=== PATIENT | female | born 1960 ===

== ENCOUNTER → 2018-10-23 | Outpatient (CLI) | payer OTHER | END | disposition home or self-care (01) | LOC: RAD 10:44 | DX: J01.80 Other acute sinusitis (principal); J20.8 Acute bronchitis due to other specified organisms ==

== ENCOUNTER 2019-03-06 08:45 | Outpatient (CLI) | payer OTHER | END 2019-03-06 08:47 | disposition home or self-care (01) | LOC: TOM 08:45 | DX: R10.31 Right lower quadrant pain (principal); R10.33 Periumbilical pain; R10.32 Left lower quadrant pain ==

== ENCOUNTER → 2021-01-03 14:41 | Outpatient (CLI) | payer OTHER | END | disposition home or self-care (01) | LOC: PPH VACUNA 14:41 | DX: Z23 Encounter for immunization (principal) ==

== ENCOUNTER 2021-08-01 07:30 | Outpatient (CLI) | payer OTHER | END 2021-08-01 07:31 | disposition home or self-care (01) | LOC: NUCLEAR 07:30 | PROVIDERS: ATTEND Internal Medicine Cardiovascular Disease | DX: R55 Syncope and collapse (principal) | CPT/HCPCS: 78452; 93017; A9500 ==

== ENCOUNTER → 2021-08-01 10:50 | Outpatient (CLI) | payer OTHER | END | disposition home or self-care (01) | LOC: RAD 10:50 | PROVIDERS: ATTEND Internal Medicine Cardiovascular Disease | DX: R55 Syncope and collapse (principal); I10 Essential (primary) hypertension; M79.671 Pain in right foot ==

== ENCOUNTER → 2023-03-23 | Outpatient (CLI) | payer OTHER | END | disposition home or self-care (01) | LOC: TOM 08:37 | PROVIDERS: ATTEND Pulmonary Function Technologist | DX: C50.919 Malignant neoplasm of unspecified site of unspecified female breast (principal); K21.9 Gastro-esophageal reflux disease without esophagitis; B39.9 Histoplasmosis, unspecified ==

== ENCOUNTER 2025-05-27 13:34 | Outpatient (CLI) | payer OTHER | END 2025-05-27 13:42 | disposition home or self-care (01) | LOC: SONOGRAMA 13:34 | PROVIDERS: ATTEND Internal Medicine Gastroenterology | DX: R10.13 Epigastric pain (principal) ==